=== PATIENT | female | born 1955 | race Hispanic/Latino ===

== ENCOUNTER 2023-02-26 05:19 | Observation (INO) | payer BC ==
[2023-02-23 13:10] VITALS: BP 132/67; PULSE 64; RESP 20
[2023-02-23 13:43] LABS: CREATININE 0.6 mg/dL (0.5-1.5); POTASSIUM 4.8 mmol/L (3.5-5.1)
[~2023-02-26] VITALS: Ht 152.4 cm; Wt 97.5 kg
[2023-02-26] VITALS (30 sets, daily range): BP systolic 101–150; BP diastolic 45–86; PULSE 50–73; RESP 10–20; O2SAT 95–97
[~2023-02-26 05:19] MED LIST: AEC81 PO; METO25TA6 PO; PENT400T72 PO; TELM40TA8 PO
[2023-02-26] MEDS ORDERED: CEFAZOLIN SODIUM 2 GM VIAL ONE (05:21)
[2023-02-26] MEDS ORDERED: LACTATED RINGERS 1000ML 1,000 ML IV ONE (05:21)
[2023-02-26] MEDS ORDERED: GENTAMICIN SULFATE 80 MG/2 ML VIAL ONE (06:18)
[2023-02-26] MEDS ORDERED: CEFAZOLIN SODIUM 1 GM VIAL ONE (06:18)
[2023-02-26] MEDS ORDERED: TRANEXAMIC ACID 1000MG/10ML ONE (06:18)
[2023-02-26] MEDS ORDERED: MIDAZOLAM HCL 1 MG/ML 2ML VIAL ONE (06:57)
[2023-02-26] MEDS ORDERED: PROPOFOL 1000 MG/100 ML 100 ML IV ONE (07:02)
[2023-02-26] MEDS ORDERED: DEXMEDETOMIDINE HCL 200 MCG/2 ML VIAL IV ONE (07:03)
[2023-02-26] MEDS ORDERED: TRANEXAMIC ACID 1000MG/10ML IV ONE (07:45)
[2023-02-26] MEDS ORDERED: PHENYLEPHRINE HCL 10 MG/ML 1ML VIAL IV ONE (08:50)
[2023-02-26] MEDS ORDERED: 0.9%NACL 100ML 48.45 ML, ROPIVACAINE 0.5% 5MG/ML 30ML 246.25 MG, KETOROLAC TROMETHAMINE... IV PRN ×5 (09:00)
[2023-02-26] MEDS ORDERED: HYDROMORPHONE PCA 10 MG/50 ML 50 ML IV ONE (11:20)
[2023-02-26] MEDS ORDERED: ONDANSETRON 4MG INJ IVP PRN (11:30)
[2023-02-26] MEDS ORDERED: MAG/ALUM/SIMETH 30 ML UDCUP PO PRN (11:30)
[2023-02-26] MEDS ORDERED: DIPHENHYDRAMINE HCL 25 MG CAPSULE PO PRN ×2 (11:30)
[2023-02-26] MEDS ORDERED: DIPHENOXYLATE HCL/ATROPINE 2.5/0.025 MG TAB PO PRN (11:30)
[2023-02-26] MEDS ORDERED: HYDROMORPHONE PCA 10 MG/50 ML 50 ML IV PRN (11:30)
[2023-02-26] MEDS ORDERED: BENZOCAINE/MENTH/CETYLPYRD CL 1 EACH LOZENGE MM PRN (11:30)
[2023-02-26] MEDS ORDERED: DiphenhydrAMINE HCL 50 MG/ML VIAL IM PRN (11:30)
[2023-02-26] MEDS: 0.9%NACL 1000ML 1,000 ML IV SCH (11:40)
[2023-02-26] MEDS ORDERED: WARFARIN SODIUM 2 MG TAB PO SCH (12:00)
[2023-02-26] MEDS ORDERED: COMPOUND IV REFRIGERATED 1 EACH IVSOLN MISC PRN (13:00)
[2023-02-26] MEDS ORDERED: CEFAZOLIN SODIUM 2 GM VIAL IVPB SCH (15:30)
[2023-02-26] MEDS: CEFAZOLIN SODIUM 3 GM in DEXTROSE 5%-WATER 100 ML IVPB SCH (16:23)
[2023-02-26] MEDS: TRAMADOL HCL 50 MG TABLET PO PRN (18:17)
[2023-02-26] MEDS ORDERED: WARFARIN SODIUM 2 MG TAB PO ONE (20:00)
[2023-02-26] MEDS ORDERED: WARFARIN SODIUM 1 MG TAB ONE (20:16)
[2023-02-26] MEDS: METOPROLOL TARTRATE 25 MG TAB PO SCH (20:22)
[2023-02-26] MEDS: PENTOXIFYLLINE 400 MG TABLET.SA PO SCH ×2 (20:23→21:00)
[2023-02-26] MEDS: Telmisartan 40 MG PO SCH (20:23)
[2023-02-27] VITALS (7 sets, daily range): BP systolic 98–141; BP diastolic 49–75; PULSE 55–97; RESP 16–19; O2SAT 97–98
[2023-02-27] MEDS: CEFAZOLIN SODIUM 3 GM in DEXTROSE 5%-WATER 100 ML IVPB SCH (00:07)
[2023-02-27] MEDS: 0.9%NACL 1000ML 1,000 ML IV SCH ×3 (00:10→17:30)
[2023-02-27 03:29] LABS: HEMATOCRIT 34.6 % (36-48); MEAN CORPUSCULAR HEMOGLOBIN 27.9 pg (27.0-33.0); MEAN CORPUSCULAR HGB CONC 31.8 g/dL (32.0-36.0); MEAN CORPUSCULAR VOLUME 87.8 fL (79-99); RED BLOOD CELL COUNT(AUTO) 3.94 MIL/uL (4.00-5.50); RED CELL DISTRIBUTION WIDTH 13.5 % (11.0-15.5); WHITE BLOOD COUNT (AUTO) 7.3 K/uL (4.8-10.8)
[2023-02-27 03:35] LABS: CREATININE 0.6 mg/dL (0.5-1.5); POTASSIUM 4.2 mmol/L (3.5-5.1)
[2023-02-27 03:38] LABS: INR 0.97 (0.85-1.15); PROTHROMBIN TIME 11.3 SEC (9.6-11.6)
[2023-02-27] MEDS: METOPROLOL TARTRATE 25 MG TAB PO SCH ×2 (08:19→20:52)
[2023-02-27] MEDS: PENTOXIFYLLINE 400 MG TABLET.SA PO SCH ×2 (08:21→20:52)
[2023-02-27] MEDS ORDERED: WARFARIN SODIUM 10 MG TABLET PO SCH (16:00)
[2023-02-27] MEDS: TRAMADOL HCL 50 MG TABLET PO PRN (17:30)
[2023-02-27] MEDS: Telmisartan 40 MG PO SCH (20:52)
[2023-02-28] VITALS (7 sets, daily range): BP systolic 122–147; BP diastolic 51–70; PULSE 68–84; RESP 17–20; O2SAT 97–98
[2023-02-28] MEDS: 0.9%NACL 1000ML 1,000 ML IV SCH ×2 (03:30→13:30)
[2023-02-28 04:30] LABS: HEMATOCRIT 33.8 % (36-48); MEAN CORPUSCULAR HEMOGLOBIN 28.1 pg (27.0-33.0); MEAN CORPUSCULAR VOLUME 87.8 fL (79-99); RED BLOOD CELL COUNT(AUTO) 3.85 MIL/uL (4.00-5.50); RED CELL DISTRIBUTION WIDTH 13.6 % (11.0-15.5); WHITE BLOOD COUNT (AUTO) 9.1 K/uL (4.8-10.8)
[2023-02-28 04:40] LABS: INR 1.13 (0.85-1.15)
[2023-02-28 04:42] LABS: PARTIAL THROMBOPLASTIN TIME 31.4 SEC (26.3-35.5)
[2023-02-28 05:02] LABS: CREATININE 0.7 mg/dL (0.5-1.5); POTASSIUM 3.9 mmol/L (3.5-5.1)
[2023-02-28] MEDS: PENTOXIFYLLINE 400 MG TABLET.SA PO SCH ×2 (09:00→09:54)
[2023-02-28] MEDS ORDERED: WARFARIN SODIUM 10 MG TABLET PO SCH (09:00)
[2023-02-28] MEDS: TRAMADOL HCL 50 MG TABLET PO PRN ×2 (09:53→17:23)
[2023-02-28] MEDS: METOPROLOL TARTRATE 25 MG TAB PO SCH (09:54)
== END 2023-02-28 18:00 | disposition home or self-care (01) ==
LOC: DAH 05:19 → DAHIP 05:20 → DAH 05:20 → 4AH 10:40
PROVIDERS: ADMIT Orthopaedic Surgery; ATTEND Orthopaedic Surgery
DX: M17.12 Unilateral primary osteoarthritis, left knee (principal); E66.01 Morbid (severe) obesity due to excess calories; D64.9 Anemia, unspecified; G47.33 Obstructive sleep apnea (adult) (pediatric); I43 Cardiomyopathy in diseases classified elsewhere; E55.9 Vitamin D deficiency, unspecified; I10 Essential (primary) hypertension; I73.9 Peripheral vascular disease, unspecified; M25.562 Pain in left knee; M85.80 Other specified disorders of bone density and structure, unspecified site; G89.18 Other acute postprocedural pain; Z68.41 Body mass index [BMI] 40.0-44.9, adult; Z96.652 Presence of left artificial knee joint; Z79.82 Long term (current) use of aspirin; Z98.61 Coronary angioplasty status; Z98.891 History of uterine scar from previous surgery; Z79.01 Long term (current) use of anticoagulants; Z79.899 Other long term (current) drug therapy; Z98.890 Other specified postprocedural states
CPT/HCPCS: 80048 ×3; 36415 ×3; 71045; 87641; 27447; 96365; 96366 ×4; 96368; 97012; 97116 ×4; 96375; 85027 ×2; 85610 ×2; 82948; 97530 ×11; 85730; A6260; G0378 ×51; G0379; A4663; J7030 ×3; A4215 ×2; A4649 ×4; J7120; J0690 ×3; J3490 ×3; J1170; J1580; J2250; J2704; J7060; J2371; A6223; C1763 ×2; C1776; A4223; A4222; A4221; A6450; A4600; A4510; J2405